=== PATIENT | female | born 1995 | race Caucasian/White ===

== ENCOUNTER 2017-02-19 21:02 | Emergency (ER) | payer BC ==
[2017-02-19 21:19] VITALS: BP 118/71; PULSE 79; RESP 16; TEMP 98.1; O2SAT 98
[2017-02-19 21:21] LABS: COLOR YELLOW; LEUKOCYTE ESTERASE,URINE TRACE (NEGATIVE); NITRITE,URINE NEGATIVE (NEGATIVE)
--- NOTE | 2017-02-19 21:32 | EDPHY ---
H & P Stated Complaint: UTI SYMPTONS Time Seen by Provider: 02/19/17 21:24 HPI/ROS: CHIEF COMPLAINT: Dysuria, urethral pain. HISTORY OF PRESENT ILLNESS: This is a 21-year-old female in general good health who presents with 1 week of what she describes as urethral pain, similar to what she has had in the past with urinary tract infections. She is to experience urinary tract infections with some frequency but has not had 1 for a long time. She also reports some low back pain. She has not had fever, nausea , or vomiting. She denies urgency or frequency. She has been taking over-the- counter azo and using some other [id number] herbal remedies. She has an IUD in place. She is currently spotting, not unusual for her. She has no history of STDs. She denies vaginal discharge that is out of the ordinary. REVIEW OF SYSTEMS: A ten point review of systems was performed and is negative with the exception of the items mentioned in the HPI. Increased stress lately. 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 - Physical Exam Exam: General Appearance: Alert. Vital signs reviewed. Afebrile. Neck: No lymphadenopathy, supple. Respiratory: Lungs are clear to auscultation; no wheezes, rales, or rhonchi. Cardiovascular: Regular rate and rhythm; no murmur, rub, or gallop. Gastrointestinal: Abdomen is soft and nontender, no masses or organomegaly, bowel sounds normal. Skin: Warm and dry, no rashes on exposed skin, normal color. Back: Nontender to palpation over the thoracolumbar spine. No CVAT. Extremities: No lower extremity edema, no calf tenderness or swelling. Neurological: Alert and oriented. Moving all four extremities easily and equally. Psychiatric: Normal affect. Constitutional: Initial Vital Signs Temperature (C) 36.7 C 02/19/17 21:17 Heart Rate 79 02/19/17 21:17 Respiratory Rate 16 02/19/17 21:17 Blood Pressure 118/71 02/19/17 21:17 O2 Sat (%) 98 02/19/17 21:17 O2 Delivery Mode Room Air Allergies/Adverse Reactions: No Known Allergies Allergy (Unverified 06/13/16 13:37) Home Medications: Medication Instructions Recorded Cephalexin [Keflex] 500 mg PO BID #5 cap 02/19/17 Medical Decision Making ED Course/Re-evaluation: Urinalysis shows leukocyte esterase, red blood cells, white blood cells, and bacteria. Urine test is negative. I do not suspect pyelonephritis at this time. Her abdominal exam is benign and I am not concerned about the possibility of appendicitis, ovarian cyst, or ovarian torsion. - Data Points Laboratory Results: 02/19/17 02/19/17 21:20 21:15 Urine Color YELLOW Urine Appearance CLEAR Urine pH 6.0 (5.0-7.5) Ur Specific [place] 1.015 (1.002-1.030) Urine Protein NEGATIVE (NEGATIVE) Urine Ketones NEGATIVE (NEGATIVE) Urine Blood 1+ H (NEGATIVE) Urine Nitrate NEGATIVE (NEGATIVE) Urine Bilirubin NEGATIVE (NEGATIVE) Urine Urobilinogen 0.2 EU EU (0.2-1.0) Ur Leukocyte Esterase TRACE H (NEGATIVE) Urine RBC 3-5 /hpf H /hpf (0-3) Urine WBC 25-50 /hpf H /hpf (0-3) Ur Epithelial Cells 1+ /lpf /lpf (NONE-1+) Urine Bacteria 2+ /hpf H /hpf (NONE SEEN) Urine Mucus 1+ /lpf /lpf (NONE-1+) Urine Glucose NEGATIVE (NEGATIVE) Urine Test NEGATIVE Departure - Departure Disposition: Home, Routine, Self-Care Clinical Impression: Urinary tract infection Qualifiers: Urinary tract infection type: acute cystitis Hematuria presence: with hematuria Qualified Code(s): N30.01 - Acute cystitis with hematuria Condition: Good Instructions: Urinary Tract Infection in Women (ED) Additional Instructions: Follow up with your primary care physician in the OBGYN Division at [facility] if you are having persistent symptoms. I am referring you to Dr. Praful howard in case you can't recall the name of your physician. If you worsen in any way--fever, vomiting, severe pain--you should be re-evaluated. Take the antibiotics as prescribed. Continue with the azo if needed. Referrals: Jerrica Constantino MD [Medical Doctor] - As per Instructions Prescriptions: Cephalexin [Keflex] 500 mg PO BID #5 cap
[2017-02-19 21:39] LABS: BACTERIA 2+ /hpf (NONE SEEN); MUCUS 1+ /lpf (NONE-1+); WBC,URINE 25-50 /hpf (0-3)
[2017-02-19] MEDS ORDERED: CEPHALEXIN 500 MG CAP PO ONE (21:43)
[2017-02-19] MEDS ORDERED: CEPHALEXIN 500MG PREPACK#4 BTL TAKEHOME ONE (21:43)
== END 2017-02-19 22:03 | disposition home or self-care (01) ==
LOC: CED 21:02
DX: N30.01 Acute cystitis with hematuria (principal); B96.89 Other specified bacterial agents as the cause of diseases classified elsewhere; Z87.891 Personal history of nicotine dependence
CPT/HCPCS: 81003-PO; 81015-PO; 81025-PO